=== PATIENT | male | born 1960 | race Caucasian/White ===

== ENCOUNTER 2018-09-01 13:28 | Inpatient (IN) | payer OTHER ==
[~2018-09-01] VITALS: Ht 188 cm; Wt 92.6 kg
[2018-09-01] MEDS ORDERED: SODIUM CHLORIDE 0.9% 1000ML 1,000 ML IV SCH (14:20)
[2018-09-01] MEDS ORDERED: SODIUM CHLORIDE 0.9% 1000ML 1,000 ML ONE (14:52)
--- NOTE | 2018-09-01 15:16 | NUR ---
xray at bedside
[2018-09-01 15:34] LABS: BASOPHILS # (AUTO) 0.1 (0.0-0.1); BASOPHILS % 0.5 % (0.0-1.0); EOSINOPHILS # (AUTO) 0.2 (0.0-0.4); EOSINOPHILS % 2.4 % (0.0-6.0); HEMATOCRIT 35.6 % (38.2-49.6); HEMOGLOBIN 11.5 g/dL (14.0-18.0); LYMPHOCYTES # (AUTO) 1.4 (1.0-3.2); LYMPHOCYTES % 14.6 % (18.0-39.1); MEAN CORPUSCULAR HEMOGLOBIN 28.4 pg (28-32); MEAN CORPUSCULAR HGB CONC 32.3 g/dL (31-35); MEAN CORPUSCULAR VOLUME 87.9 fL (81-99); MONOCYTES # (AUTO) 0.6 (0.2-0.8); MONOCYTES % 6.5 % (4.4-11.3); NEUTROPHILS # (AUTO) 6.8 (2.1-6.9); NEUTROPHILS % 72.6 % (38.7-80.0); PLATELET COUNT 497 x10e3/uL (140-360); RED BLOOD COUNT 4.05 x10e6/uL (4.3-5.7); RED CELL DISTRIBUTION WIDTH 12.6 % (11.7-14.4)
[2018-09-01 15:50] LABS: INR 1.2; PROTHROMBIN TIME 16.3 seconds (11.9-14.5)
[2018-09-01 15:51] LABS: PARTIAL THROMBOPLASTIN TIME 39.3 seconds (23.8-35.5)
[2018-09-01 16:00] LABS: ALBUMIN/GLOBULIN RATIO 0.7 (0.8-2.0); ANION GAP 18.2 mmol/L (8-16); CALCIUM 9.9 mg/dL (8.4-10.2); CREATININE, SERUM 2.1 mg/dL (0.72-1.25)
[2018-09-01 16:04] LABS: POTASSIUM 5.2 mmol/L (3.5-5.1)
--- NOTE | 2018-09-01 16:19 | Diagnostic Imaging Report ---
Examination: Single AP view of the chest. COMPARISON: None. INDICATION: Chest pain DISCUSSION: Lines/tubes: None. Lungs: The lungs are well inflated and clear. No pneumonia or pulmonary edema. Pleura: No pleural effusion or pneumothorax. Heart and mediastinum: The heart and the mediastinum are unremarkable. Bones and soft tissues: No acute bony abnormalities. IMPRESSION: 1. No acute cardiopulmonary abnormalities. Signed by: Dr. Scott Osorio M.D. on 09/01/2018 4:15 PM
[2018-09-01 16:23] LABS: BILIRUBIN,URINE NEGATIVE (NEGATIVE); CLARITY,URINE SL CLOUDY (CLEAR); COLOR,URINE YELLOW (YELLOW); KETONES,URINE NEGATIVE (NEGATIVE); LEUKOCYTE ESTERASE ,URINE NEGATIVE (NEGATIVE); NITRITE,URINE NEGATIVE (NEGATIVE); PROTEIN,URINE DIPSTICK NEGATIVE (NEGATIVE); URINE UROBILINOGEN 0.2 mg/dL (0.2 - 1)
[2018-09-01 16:38] LABS: AMORPHOUS SEDIMENT,URINE MODERATE (FEW); BACTERIA,URINE MANY /HPF
[2018-09-01] MEDS ORDERED: SODIUM CHLORIDE 0.9% 1000ML 1,000 ML IV ONE (18:45)
[2018-09-01] MEDS ORDERED: ONDANSETRON HCL INJ 2MG/ML 2ML 2 MG/ML VIAL IV PRN (19:15)
--- OUTSIDE RECORDS SUMMARY | 2018-09-01 19:35 | XMS REPORT ---
Author Author [facility] Address Unknown Phone Unavailable Care Team Providers Care Thimble Press Operator Name Role Phone Arnold AVILES Unavailable Unavailable Problems This patient has no known problems. Allergies, Adverse Reactions, Alerts This patient has no known allergies or adverse reactions. Medications This patient has no known medications. Results Test Description Test Time Test Comments Text Results Atomic Results Result Comments CHEST SINGLE (PORTABLE) 2018-09-01 16:15:00 [place] [address] Patient Name: MATILDE REYNA MR #: [id number] : 1960 Age/Sex: 58/M Req #: [id number] Adm Physician: Ordered by: MARI AVILES MD Report #: [id number] Location: ER Room/Bed: Procedure: [id number] DX/CHEST SINGLE (PORTABLE) Exam Date: 09/01/18 Exam Time: 1515 REPORT STATUS: Signed Examination: Single AP view of the chest. COMPARISON: None. INDICATION: Chest pain DISCUSSION: Lines/tubes: None. Lungs: The lungs are well inflated and clear. No pneumonia or pulmonary edema. Pleura: No pleural effusion or pneumothorax. Heart and mediastinum: The heart and the mediastinum are unremarkable. Bones and soft tissues: No acute bony abnormalities. IMPRESSION: 1. No acute cardiopulmonary abnormalities. Signed by: Dr. Mónica Andrade M.D. on 09/01/2018 4:15 PM Dictated By: MÓNICA ANDRADE MD [id number] Transcribed By: GEORGINA on 09/01/18 1611 COPY TO: MARI AVILES MD
[2018-09-01 20:33] VITALS: BP 119/57
--- NOTE | 2018-09-01 20:33 | NUR ---
Patient arrived to floor via w/c. Patient in bed room 207. Denies pain or discomfort at this time.
[2018-09-01 20:57] LABS: EOSINOPHILS % (MANUAL) 3 % (0-7); LYMPHOCYTES % (MANUAL) 12 % (19-48); MONOCYTES % (MANUAL) 3 % (3.4-9.0); NEUTROPHILS % (MANUAL) 82 % (40-74); PLATELET ESTIMATE SLIGHTLY INCREASED; PLATELET MORPHOLOGY COMMENT NORMAL; RBC MORPHOLOGY COMMENT NORMAL
[2018-09-01 21:11] VITALS: BP 119/57
[2018-09-01] MEDS: SODIUM CHLORIDE 0.9% 1000ML 1,000 ML IV SCH (21:30)
[2018-09-02] VITALS (8 sets, daily range): BP systolic 111–130; BP diastolic 54–73
--- NOTE | 2018-09-02 | NUR ---
Patient AAOx3. Ambulate with no difficlt.
[2018-09-02] MEDS: SODIUM CHLORIDE 0.9% 1000ML 1,000 ML IV SCH ×2 (03:13→11:13)
[2018-09-02] MEDS ORDERED: PANTOPRAZOLE SO40 MG PO (04:48)
[2018-09-02] MEDS ORDERED: BENICAR20 MG PO (04:49)
[2018-09-02] MEDS ORDERED: CARVEDILOL12.5 MG PO (04:51)
[2018-09-02] MEDS ORDERED: SERTRALINE HCL50 MG PO (04:52)
[2018-09-02 05:05] LABS: BASOPHILS % 0.6 % (0.0-1.0); EOSINOPHILS # (AUTO) 0.2 (0.0-0.4); EOSINOPHILS % 3.5 % (0.0-6.0); HEMATOCRIT 29.8 % (38.2-49.6); HEMOGLOBIN 9.6 g/dL (14.0-18.0); LYMPHOCYTES # (AUTO) 1.6 (1.0-3.2); LYMPHOCYTES % 24.2 % (18.0-39.1); MEAN CORPUSCULAR HEMOGLOBIN 27.8 pg (28-32); MEAN CORPUSCULAR HGB CONC 32.2 g/dL (31-35); MEAN CORPUSCULAR VOLUME 86.4 fL (81-99); MONOCYTES # (AUTO) 0.5 (0.2-0.8); MONOCYTES % 7.4 % (4.4-11.3); NEUTROPHILS % 61.5 % (38.7-80.0); PLATELET COUNT 342 x10e3/uL (140-360); RED BLOOD COUNT 3.45 x10e6/uL (4.3-5.7); RED CELL DISTRIBUTION WIDTH 12.7 % (11.7-14.4)
[2018-09-02] MEDS ORDERED: DICYCLOMINE HCL20 MG PO (05:13)
[2018-09-02] MEDS ORDERED: DICYCLOMINE HCL25 GM (05:13)
[2018-09-02 05:34] LABS: ANION GAP 14.4 mmol/L (8-16); CALCIUM 8.9 mg/dL (8.4-10.2); CREATININE, SERUM 1.44 mg/dL (0.72-1.25); POTASSIUM 5.4 mmol/L (3.5-5.1)
[2018-09-02 05:44] LABS: CREATINE KINASE MB 0.9 ng/mL (0-5.0)
--- NOTE | 2018-09-02 06:55 | Diagnostic Imaging Report ---
EXAMINATION: CHEST SINGLE (PORTABLE) INDICATION: WEAKNESS COMPARISON: 09/01/2018 FINDINGS: AP view TUBES and LINES: None. LUNGS: Lungs are well inflated. There is mild bibasilar atelectasis. There is no evidence of pneumonia or pulmonary edema. PLEURA: Poor delineation of the right hemidiaphragm. No left pleural effusion. No pneumothorax. HEART AND MEDIASTINUM: The cardiomediastinal silhouette is unremarkable. BONES AND SOFT TISSUES: No acute osseous lesion. Soft tissues are unremarkable. UPPER ABDOMEN: No free air under the diaphragm. IMPRESSION: Possible small right pleural effusion with adjacent atelectasis. Signed by: DR. Lizandro Rehman MD on 09/02/2018 6:51 AM
--- NOTE | 2018-09-02 07:05 | NUR ---
PT ALERT RESP EVEN AND UNLABORED, NO DISTRESS NOTED, NO C/O PAIN WHEN ASKED PT ABLE TO MAKE NEEDS KNOWN, CALL LIGHT IN REACH.
[2018-09-02 07:20] LABS: EOSINOPHILS % (MANUAL) 5 % (0-7); LYMPHOCYTES % (MANUAL) 20 % (19-48); METAMYELOCYTES % (MANUAL) 3 % (0-0); MONOCYTES % (MANUAL) 7 % (3.4-9.0); NEUTROPHILS % (MANUAL) 65 % (40-74)
[2018-09-02 07:21] LABS: PLATELET ESTIMATE ADEQUATE; PLATELET MORPHOLOGY COMMENT NORMAL; RBC MORPHOLOGY COMMENT NORMAL
[2018-09-02] MEDS ORDERED: CALCIUM GLUCONATE 10% INJ 4.65 MEQ in SODIUM CHLORIDE 0.9% 50ML 50 ML IV ONE (11:30)
[2018-09-02] MEDS ORDERED: DIATRIZOATE MEGL/DIATRIZOA SOD 30 ML BTL PO ONE (11:49)
[2018-09-02 12:08] LABS: CREATINE KINASE 45 IU/L (30-200)
[2018-09-02 12:29] LABS: FREE T4 (FREE THYROXINE) 1.01 ng/dL (0.9-1.8); THYROID STIMULATING HORMONE 1.272 uIU/mL (0.350-4.940)
[2018-09-02] MEDS: SODIUM BICARBONATE 8.4% 100 ML in DEXTROSE 5% 1,000 ML IV SCH ×2 (12:37→22:51)
--- NOTE | 2018-09-02 13:00 | NUR ---
off unit for procedure.
--- NOTE | 2018-09-02 13:03 | History and Physical ---
CHIEF COMPLAINT: Diarrhea, hypotension, and weight loss. HISTORY OF PRESENT ILLNESS: Mr. Dinero is a 58-year-old male who came to the emergency room after his primary care physician sent him over. She heard crackles on the right side of the base and also he was hypotensive to 66/40 in her office. He denies any complaints of chest pain, nausea, or vomiting. He reports that a month ago on 31 of July, he was admitted for knee replacement surgery. He went home and one week later, he started having watery diarrhea that went on. He has lost 25 pounds and his appetite is reduced as well. He denies any chest pain, sick contacts, recent travel, fever or chills at home. This morning, he had one solid stool and one loose stool as well. He denies any chest pain, nausea, vomiting, diarrhea, or abdominal pain. REVIEW OF SYSTEMS GENERAL: Denies any fever or chills. HEAD: Denies any head trauma. ENT: Denies any earaches. CVS: Denies any chest pain. RESPIRATORY: Denies any shortness of breath. GI: Denies any nausea, vomiting, hematemesis or hematochezia. Rest of the review systems are negative except as in HPI. PAST MEDICAL HISTORY: Hypertension. PAST SURGICAL HISTORY: Total knee replacement and multiple knee surgeries. FAMILY AND SOCIAL HISTORY: He does not smoke, does not drink. 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 PHYSICAL EXAMINATION VITAL SIGNS: Temperature 97.5, pulse of 66, blood pressure 122/68, respiratory rate of 18, and O2 sat 97%. HEENT: Head is atraumatic, normocephalic. NECK: Supple. CHEST: Right-sided crackles. HEART: S1 and S2 audible. ABDOMEN: Soft and nontender. EXTREMITIES: No peal edema. NEUROLOGIC: Awake and alert, following commands, respond to questions appropriately. DATA: Chest x-ray showing right-sided small infiltrate. LABS: White count of 6.52, hemoglobin 9.6, was 11.5 when he came. Chemistries; sodium 139, potassium 5.2, chloride 107, BUN 31, creatinine 2.10. When he came in, anion gap was 18.2, which is down to 14.4 and bicarb is 20 now. ASSESSMENT: Mr. Dinero is a 58-year-old male who has been having diarrhea since he had his knee replacement surgery. C. difficile is pending. The diarrhea is watery with weight loss of 25 pounds, also has a right-sided lung crackles, was hypotensive in PMD's office, presented with acute renal failure, dehydration, weight loss, feeling hot and cold. Differential could be new-onset hypothyroidism and C. difficile infection, possibility of hospital-acquired pneumonia. Chest x-ray is showing area of haziness on the right side. PLAN 1. We will do a CT chest, abdomen, and pelvis without contrast. 2. GI consult. 3. Stool for occult blood. 4. I will check TSH and free T4. 1. Nephrology consult for acute renal failure, which is improving. 2. Hyperkalemia likely due to LIZETH. Potassium 4. We will give IV calcium gluconate and repeat BMP. I will also change the fluid to D5W with 1 to 2 amps of bicarb. Discussed with patient's at bedside in detail. Job#: [id number] SAILAJA
--- NOTE | 2018-09-02 13:56 | NUR ---
return to unit, alert no distress noted. call light in reach
--- NOTE | 2018-09-02 14:56 | Diagnostic Imaging Report ---
EXAM: CT Chest abdomen and pelvis WITHOUT contrast 09/02/2018 11:01 AM INDICATION: ^abnormal cxr ^[id number] ^1300 COMPARISON: CT abdomen and pelvis 09/02/2018, chest radiograph 09/02/2018 and 09/01/2018 TECHNIQUE: Chest was scanned utilizing a multidetector helical scanner from the lung apex through the level of the hips without administration of IV contrast. Absence of intravenous contrast decreases sensitivity for detection of lymphadenopathy and vascular pathology. Coronal and sagittal reformations were obtained. Routine protocol was performed. IV CONTRAST: None Oral Contrast: Gastrografin COMPLICATIONS: None RADIATION DOSE: Total DLP: 1091mGy*cm Estimated effective dose: (DLP x 0.015 x size factor) mSv CTDIvol has been reviewed. It is below the limits set by the Radiation Protocol Committee (RPC). FINDINGS: LINES/ TUBES: None. LUNGS AND AIRWAYS: Large consolidation/mass involving approximately 50% of the right lower lobe with associated postobstructive pneumonitis manifested by groundglass opacities and septal thickening there is also an irregular pleural-based nodule measuring 3.3 cm in length x 0.9 cm in height, better seen on coronal image 90. No contralateral left pulmonary nodules. The airways are patent. Mild centrilobular emphysema. PLEURA: Small right pleural effusion. No left pleural effusion. No pneumothorax. HEART AND MEDIASTINUM: The thyroid gland is normal. Few subcentimeter right and left paratracheal lymph nodes. There is a 1 cm subcarinal lymph node on series 2, image 32. The heart is normal in size. There is no pericardial effusion. The thoracic aorta and pulmonary arteries are unremarkable. HEPATOBILIARY: No focal hepatic lesions. No biliary ductal dilation. GALLBLADDER: No radio-opaque stones or sludge. No wall thickening. SPLEEN: No splenomegaly. PANCREAS: No focal masses or ductal dilatation. ADRENALS: 3.4 cm indeterminate left adrenal gland nodule is concerning for metastatic disease. The right adrenal gland is normal. KIDNEYS/URETERS: No hydronephrosis. No cystic or solid mass lesions. 2 mm nonobstructing calcified stone in the inferior pole of the left kidney on series 2, image 84. GI TRACT: No abnormal distention, wall thickening, or evidence of bowel obstruction. Few a scattered diverticulosis of the sigmoid colon. Appendix is no visualized. PELVIC ORGANS/BLADDER: The urinary bladder appears unremarkable. The prostate is not seen. LYMPH NODES: No lymphadenopathy. VESSELS: Unremarkable. PERITONEUM / RETROPERITONEUM: No free air or fluid. BONES: Mild multilevel degenerative changes of the thoracolumbar spine. No destructive lytic or blastic lesions. Degenerative changes of the right glenohumeral joint. SOFT TISSUES: Unremarkable. IMPRESSION: Large consolidation/mass in the right lower lobe with postobstructive pneumonitis with additional pleural-based nodule/mass in the posterior right upper lobe and small right pleural effusion. Overall findings may represent large pneumonia, however, given patient's symptoms and presence of a large left adrenal nodule, there is a high concern for malignancy with superimposed postobstructive pneumonitis. Recommend pulmonary consultation for bronchoscopic biopsy. Few indeterminate subcentimeter mediastinal lymph nodes with the largest in the subcarinal region, measuring up to 1 cm in transverse diameter. Signed by: Dr. Avis Bates M.D. on 09/02/2018 2:53 PM
--- NOTE | 2018-09-02 19:14 | NUR ---
report given to oncoming nurse, for continued care.
[2018-09-03] VITALS (7 sets, daily range): BP systolic 123–140; BP diastolic 73–86
[2018-09-03 05:01] LABS: BASOPHILS % 0.7 % (0.0-1.0); EOSINOPHILS # (AUTO) 0.2 (0.0-0.4); EOSINOPHILS % 3.3 % (0.0-6.0); HEMATOCRIT 29.2 % (38.2-49.6); HEMOGLOBIN 9.8 g/dL (14.0-18.0); LYMPHOCYTES # (AUTO) 1.3 (1.0-3.2); MEAN CORPUSCULAR HEMOGLOBIN 28.7 pg (28-32); MEAN CORPUSCULAR HGB CONC 33.6 g/dL (31-35); MEAN CORPUSCULAR VOLUME 85.6 fL (81-99); MONOCYTES # (AUTO) 0.4 (0.2-0.8); MONOCYTES % 6.2 % (4.4-11.3); NEUTROPHILS % 66.5 % (38.7-80.0); PLATELET COUNT 305 x10e3/uL (140-360); RED BLOOD COUNT 3.41 x10e6/uL (4.3-5.7); RED CELL DISTRIBUTION WIDTH 12.5 % (11.7-14.4)
[2018-09-03 05:49] LABS: FERRITIN 1276.86 ng/mL (21.81-274.66)
[2018-09-03 06:15] LABS: FOLATE 3.5 ng/mL (7.0-15.4)
[2018-09-03 07:06] LABS: ANION GAP 15.2 mmol/L (8-16); BLOOD UREA NITROGEN 15 mg/dL (7-26); BUN/CREATININE RATIO 13 (6-25); CALCIUM 8.8 mg/dL (8.4-10.2); CARBON DIOXIDE 24 mmol/L (22-29); CHLORIDE 104 mmol/L (98-107); CREATININE, SERUM 1.17 mg/dL (0.72-1.25); EST GLOMERULAR FILTRATION RATE > 60 ML/MIN (60-); GLUCOSE 103 mg/dL (74-118); POTASSIUM 4.2 mmol/L (3.5-5.1); SODIUM 139 mmol/L (136-145)
--- NOTE | 2018-09-03 07:12 | NUR ---
PT ALERT RESP EVEN AND UNLABORED AT THIS TIME NO DISTRESS NOTED, NO C/O PAIN WHEN ASKED, PT ABLE TO MAKE NEEDS KNOWN, CALL LIGHT IN REACH.
--- NOTE | 2018-09-03 08:35 | NUR ---
STOOL SENT TO LAB.
[2018-09-03] MEDS: SODIUM BICARBONATE 8.4% 100 ML in DEXTROSE 5% 1,000 ML IV SCH (09:30)
[2018-09-03] MEDS ORDERED: AZITHROMYCIN 250 MG TAB PO ONE (12:00)
[2018-09-03] MEDS ORDERED: DEXTROSE 5%/0.9% SOD CHL 1,000 ML IV ONE (14:15)
--- NOTE | 2018-09-03 16:40 | NUR ---
PT AMB IN [place] NO DISTRESS NOTED.
--- NOTE | 2018-09-03 19:49 | NUR ---
REPORT GIVEN TO ONCOMING NURSE, FOR CONTINUED CARE
[2018-09-04] VITALS (7 sets, daily range): BP systolic 115–134; BP diastolic 71–81
[2018-09-04 07:37] LABS: BASOPHILS # (AUTO) 0.1 (0.0-0.1); BASOPHILS % 0.8 % (0.0-1.0); EOSINOPHILS # (AUTO) 0.2 (0.0-0.4); HEMATOCRIT 30.6 % (38.2-49.6); HEMOGLOBIN 10.2 g/dL (14.0-18.0); LYMPHOCYTES # (AUTO) 1.5 (1.0-3.2); LYMPHOCYTES % 22.8 % (18.0-39.1); MEAN CORPUSCULAR HEMOGLOBIN 28.5 pg (28-32); MEAN CORPUSCULAR HGB CONC 33.3 g/dL (31-35); MEAN CORPUSCULAR VOLUME 85.5 fL (81-99); MONOCYTES # (AUTO) 0.5 (0.2-0.8); MONOCYTES % 7.2 % (4.4-11.3); NEUTROPHILS # (AUTO) 4.2 (2.1-6.9); NEUTROPHILS % 65.3 % (38.7-80.0); PLATELET COUNT 297 x10e3/uL (140-360); RED BLOOD COUNT 3.58 x10e6/uL (4.3-5.7); RED CELL DISTRIBUTION WIDTH 12.5 % (11.7-14.4)
[2018-09-04 07:59] LABS: ANION GAP 13.9 mmol/L (8-16); BLOOD UREA NITROGEN 11 mg/dL (7-26); BUN/CREATININE RATIO 9 (6-25); CARBON DIOXIDE 29 mmol/L (22-29); CHLORIDE 101 mmol/L (98-107); CREATININE, SERUM 1.22 mg/dL (0.72-1.25); EST GLOMERULAR FILTRATION RATE > 60 ML/MIN (60-); GLUCOSE 96 mg/dL (74-118); POTASSIUM 4.9 mmol/L (3.5-5.1); SODIUM 139 mmol/L (136-145)
[2018-09-04 08:02] LABS: INR 1.16; PROTHROMBIN TIME 15.8 seconds (11.9-14.5)
[2018-09-04] MEDS: DICYCLOMINE HCL 10 MG CAP PO SCH ×3 (09:00→21:49)
[2018-09-04] MEDS: IRON-VITAMIN-MINERAL CAPSULE PO SCH ×2 (09:00→17:34)
[2018-09-04] MEDS: AZITHROMYCIN 250 MG TAB PO SCH (10:35)
--- NOTE | 2018-09-04 12:16 | NUR ---
CASE MANAGEMENT ASSESSMENT Head Banquet Waiter/Waitress to bedside to discuss plan of care with patient/family. CM/SW role and care transitions discussed. Anticipated discharge plan discussed along with duration of care. CM/SW discussed patients right to make decisions in care. CM/SW work hours given. Patient lives: with Desiree Admit/Transfer: thru ED Hospital/ER visits since last admit: was hospitalized on July 31, 2018 at [facility] for knee replacement; returned to [facility] ED on Aug 08, but left AMA after 9.5 -10 hrs without being seen by a doctor. POA/Emergency contact: Desiree Dinero [phone] Current/Previous Home Health: none PCP/Follow-up Care: goes to [facility]; states he sees whichever doctor is available there. Advised pt to follow up with a doctor within 7 days of discharge. Current/Previous DME: none Medications (referring to index hospitalization or the first time you were in the hospital) a. Were changes made in your medications when you were in the hospital on July 2018? no b. Did you understand the changes? n/a c. Were you able to obtain your new medications right away? n/a d. Were you able to take your medications like the doctor wanted you to? n/a e. Did the hospital give you an accurate, easy to understand list of medications when you left? n/a Scale of 1-10 how comfortable does patient feel with disease management in outpatient settin Other Services: none Employment Status: employed for the [employer] Areas of Concerns: diarrhea, dehydration, 25 lb weight loss in 3 weeks Referral Needs: dietary Education Needs: medical management IMM/MULTANI given and signed (if applicable): n/a Goal for discharge: home independently CM/SW left business card at the bedside with contact information. Name and number was also written on the patients whiteboard. Patient verbalized understanding of discussion. CM will follow-up with ongoing discharge and transition of care needs.
--- NOTE | 2018-09-04 12:25 | NUR ---
ASSESSMENT: No spiritual concerns expressed Pt's and 2 granddaughters at bedside. 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 Intervention: Provided hospitality and information on how to reach licensed clinician, if needed. Outcome: Pt & expressed appreciation for visit. DECLAN BROOKE Delicatessen Department Manager Spiritual Care Department O: [phone] Pager: [phone] ([phone] number calling from)
[2018-09-04] MEDS ORDERED: OXYMETAZOLINE HCL 0.05% NAS 1 SPRAY BTL ONE (12:37)
[2018-09-04] MEDS ORDERED: LIDOCAINE HCL 4% 50 ML BTL ONE (12:37)
[2018-09-04] MEDS ORDERED: ACETYLCYSTEINE 200 MG/ML 4ML VIAL ONE (12:37)
[2018-09-04] MEDS ORDERED: LIDOCAINE JELLY 2% 10ML URO-JET ONE (12:37)
[2018-09-04] MEDS ORDERED: EPINEPHRINE HCL 1:1000 1ML 1 MG/ML AMP ONE (12:37)
--- NOTE | 2018-09-04 14:00 | Diagnostic Imaging Report ---
A single frontal view of the chest. HISTORY: POST BRONCH COMPARISON: Chest radiograph September 02, 2018. CT of the chest September 02 2018. DISCUSSION: Portable technique, limits sensitivity of the exam. Soft tissue attenuation partially limits sensitivity of the exam. Overlying monitoring leads. Tubes/Lines: None Lungs and pleura: Low lung volumes result in bibasilar vascular crowding, accentuation of the pulmonary interstitial markings, central pulmonary vasculature, and the cardiac silhouette. Allowing for these limitations, the findings are as follows: The right basilar opacity is better characterized on the recent CT of the chest. No definite pleural effusion or pneumothorax is identified. Heart and mediastinum: The cardiomediastinal silhouette appears unremarkable. Bones and soft tissues: Appear unremarkable, given this limited exam. IMPRESSION: No radiographic evidence of a pneumothorax, status post bronchoscopy. Signed by: Dr. Carmelo Sandoval D.O., M.M.M. on 09/04/2018 1:57 PM
[2018-09-04 14:43] LABS: BODY FLUID APPEARANCE SL.CLOUDY; BODY FLUID COLOR RED; BODY FLUID TYPE PLEURAL
--- NOTE | 2018-09-04 15:04 | NUR ---
Pt back on unit in stable condition with even and unlabored respirations on room air. Dr. iGron at bedside.
[2018-09-04 15:29] LABS: RBC,BODY FLUID 1219 cells/uL; WBC,BODY FLUID 9 cells/uL
[2018-09-04 15:37] LABS: LYMPHOCYTES,BODY FLUID 29 %; MONO/MACROPHG,BODY FLUID 58 %; NEUTROPHILS,BODY FLUID 13 %
--- NOTE | 2018-09-04 16:05 | Operative Report ---
DATE OF PROCEDURE: September 04, 2018 PREPROCEDURE DIAGNOSIS: Abnormal computed tomography chest. POSTPROCEDURE DIAGNOSIS: Normal endobronchial airways. PROCEDURE PERFORMED: Bronchoscopy with bronchioalveolar lavage and biopsy. ANESTHESIA: MAC. PROCEDURE IN DETAIL: Bronchoscope was advanced through the LMA. Vocal cords were identified, which were normally moving. Trachea was entered. Alpa was identified, which was within normal limits. Both lungs were examined until segmental level. Right upper lobe, middle lobe, lower lobe were examined. No endobronchial lesion was seen. Left upper lobe lingula and lower lobe were examined. No endobronchial lesion was seen. Transbronchial lung biopsy was done from right lower lobe, and BAL was done from right lower lobe as well. Patient tolerated the procedure well. COMPLICATIONS: None. BLOOD LOSS: 1 to 2 mL. Postprocedure chest x-ray is not showing any evidence of pneumothorax. Job#: [id number] EV
[2018-09-04] MEDS ORDERED: FENTANYL CITRATE/PF 100MCG/2 ML INJ ONE (17:53)
[2018-09-04] MEDS ORDERED: LIDOCAINE HCL 2% LOCAL INJ 5 ML SDV VIAL INJ ONE (18:05)
[2018-09-04] MEDS ORDERED: ONDANSETRON HCL INJ 2MG/ML 2ML 2 MG/ML VIAL ONE (18:05)
[2018-09-04] MEDS ORDERED: SEVOFLURANE INHAL SOLN 250 ML PEN BTL ONE (18:05)
[2018-09-04] MEDS ORDERED: PROPOFOL IV EMULSION 10 MG/ML 20 ML VIAL ONE (18:05)
[2018-09-04] MEDS ORDERED: DEXAMETHASONE SOD PHOS INJ 4 MG/ML VIAL ONE (18:05)
[2018-09-05] VITALS: BP 109/68
[2018-09-05 04:00] VITALS: BP 104/65
[2018-09-05 07:51] VITALS: BP 119/70
[2018-09-05 09:11] VITALS: BP 119/70
[2018-09-05] MEDS: IRON-VITAMIN-MINERAL CAPSULE PO SCH (09:11)
[2018-09-05] MEDS: DICYCLOMINE HCL 10 MG CAP PO SCH (09:11)
[2018-09-05] MEDS: AZITHROMYCIN 250 MG TAB PO SCH (09:11)
[2018-09-05] MEDS ORDERED: AZITHROMYCIN250 MG PO ×2 (10:30→11:49)
[2018-09-05] MEDS ORDERED: FOLIC ACID 1 MG TAB PO NR (11:00)
[2018-09-05] MEDS ORDERED: CYANOCOBALAMIN 1,000 MCG TAB PO NR (11:00)
[2018-09-05 11:49] VITALS: BP 122/61
--- NOTE | 2018-09-05 12:15 | NUR ---
Discharge instructions and home Rx's given to the patient. Pt verbalized understanding. IV removed with tip intact, dressing applied. pt tolerated well. All personal belongings packed. Pt escorted to personal vehicle in stable condition via wheelchair with all belongings.
--- NOTE | 2018-09-05 12:41 | Discharge Summary ---
Patient of Dr. Mack Dr. , Dr. Vic Duran. 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 He is a nonsmoker and no alcohol use. 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 Chest x-ray revealed a right lower lobe pneumonia. CT scan reveals nodularity and possible postobstructive pneumonia. The patient underwent bronchoscopy to rule out bronchial obstruction, but none was seen. Biopsies and washings and lavage were performed, results are pending. There is also a suggestion of adrenal nodule and a pleural-based nodule as well as large mass-like infiltrate. The patient improved with azithromycin, diarrhea stopped. He was found to have anemia of chronic disease. Hemoglobin of 10.2. Folic acid was low at 3.5, B12 529. Recommend folic acid. We will check methylmalonic acid and homocysteine. His folic acid was 3.5, vitamin B12 529. Thank you for kind referral. MD BAUTISTA Prince/MODL /[id number]
== END 2018-09-05 12:07 | disposition home or self-care (01) | DRG 194 ==
LOC: ER 13:28 → ERHOLD 19:30 → MED/SURG2 20:33 → OBSVTOIN 09-04 14:57
PROVIDERS: ADMIT Internal Medicine; ATTEND Internal Medicine
PROC: 0BDF8ZX Extraction of Right Lower Lung Lobe, Via Natural or Artificial Opening Endoscopic, Diagnostic (ICD-10-PCS; 2018-09-04)
PROC: 0B9F8ZX Drainage of Right Lower Lung Lobe, Via Natural or Artificial Opening Endoscopic, Diagnostic (ICD-10-PCS; principal; 2018-09-04 13:05)
DX: J18.9 Pneumonia, unspecified organism (principal); N17.9 Acute kidney failure, unspecified; E87.2 Acidosis; D63.8 Anemia in other chronic diseases classified elsewhere; E86.0 Dehydration; E87.5 Hyperkalemia; E27.9 Disorder of adrenal gland, unspecified; K52.9 Noninfective gastroenteritis and colitis, unspecified
CPT/HCPCS: 36415; 71045; 71250; 74176; 76000; 80048; 80053; 81001; 82270; 82533; 82550; 82553; 82607; 82728; 82746; 83090; 83540; 83630; 83921; 84295; 84439; 84443; 84466; 84484; 85025; 85045; 85610; 85730; 87045; 87102; 87109; 87177; 87205; 87206; 87335; 87493; 88305; 89051; 93005; 96361; 96366; 99284; G0378; J0171; J0610; J1100; J2001; J2405; J7030; J7070

== ENCOUNTER → 2018-10-02 | Day surgery (SDC) | payer OTHER ==
[~2018-10-02] MED LIST: AZITHROMYCIN250 MG PO; BENICAR20 MG PO; CARVEDILOL12.5 MG PO; DICYCLOMINE HCL20 MG PO; DICYCLOMINE HCL25 GM; FENTANYL CITRATE/PF 100MCG/2 ML INJ ONE; HYOSCYAMINE SULFATE 0.5 MG/ML INJ ONE; MIDAZOLAM HCL 2 MG/2 ML VIAL ONE; PANTOPRAZOLE SO40 MG PO; PROPOFOL IV EMULSION 10 MG/ML 50 ML VIAL ONE; SERTRALINE HCL50 MG PO; ZYRTEC10 MG PO
--- OUTSIDE RECORDS SUMMARY | 2018-10-02 09:42 | XMS REPORT | CCD ---
Author Author Auto Generated Organization [facility] Address Unknown Phone Unavailable Care Team Providers Care Hardware Manager Name Role Phone Iris Dempsey RP Allergies, Adverse Reactions, Alerts Substance Reaction Status NKDA Active Medications Medication Instructions Start Date End Date Status Fish Oil Substitution Allowed 09/02/2011 Ordered Benicar 40 mg oral 40 mg, 1 tab, PO, Daily, 30 tab, 09/02/2011 Ordered tablet Substitution Allowed, TAB Lactated Ringers IV 1,000 mL, Rate: 40 ml/hr, Infuse 09/07/2011 09/08/2011 Discontinued 1,000 mL 1,000 mL over: 25 hr, Route: IV, Total Volume: 1,000, Start date: 09/07/11 9:50:00, Duration: 1 day, Stop date: 09/08/11 9:49:00 Vital Signs Most recent to oldest [Reference Range]: 1 2 3 Height 187.96 cm (09/02/2011 10:07:00) Temperature Oral [96.4-99.1 DegF] 98.2 DegF (09/02/2011 10:44:00) Systolic Blood Pressure [90-140 mmHg] 121 mmHg (09/07/2011 10:17:00) 95 mmHg (09/07/2011 10:05:00) 84 mmHg *LOW* (09/07/2011 09:50:00) Diastolic Blood Pressure [60-90 mmHg] 64 mmHg (09/07/2011 10:17:00) 54 mmHg *LOW* (09/07/2011 10:05:00) 44 mmHg *LOW* (09/07/2011 09:50:00) Respiratory Rate [14-20 BRMIN] 18 BRMIN (09/07/2011 10:17:00) 16 BRMIN (09/07/2011 10:05:00) 16 BRMIN (09/07/2011 09:50:00) Peripheral Pulse Rate [60-100 bpm] 73 bpm (09/02/2011 10:44:00) Weight 113.636 kg (09/02/2011 10:07:00) Results CHEMISTRY Most recent to oldest [Reference Range]: 1 Sodium Lvl [135-145 mEq/L] 140 mEq/L (09/02/2011 10:46:00) Potassium Lvl [3.5-5.1 mEq/L] 4.3 mEq/L (09/02/2011 10:46:00) Chloride Lvl [95-109 mEq/L] 104 mEq/L (09/02/2011 10:46:00) CO2 [24-32 mEq/L] 27 mEq/L (09/02/2011 10:46:00) AGAP [10.0-20.0 mEq/L] 13.3 mEq/L (09/02/2011 10:46:00) Creatinine Lvl [0.5-1.4 mg/dL] 1.2 mg/dL (09/02/2011 10:46:00) BUN [7-22 mg/dL] 12 mg/dL (09/02/2011 10:46:00) Glucose Lvl 70 mg/dL 1 *NA* (09/02/2011 10:46:00) Calcium Lvl [8.5-10.5 mg/dL] 8.7 mg/dL (09/02/2011 10:46:00) 1Interpretive Data: Reference Ranges : 0 - 7 days : 41 - 90 mg/dL7 days - 150 yrs : 70 - 99 mg/dL (fasting), based on the clinical recommendations of the [place] [employer].
--- OUTSIDE RECORDS SUMMARY | 2018-10-02 09:42 | XMS REPORT | Summary of Care ---
Author Author [facility] Address Unknown Phone Unavailable Encounter HQ Paulntr_argelia(FIN) [id number] Date(s): 08/02/18 - 08/31/18 [facility] Discharge Disposition: Home or Self Care Attending Physician: Abdirizak Duckworth MD Vital Signs No data available for this section Problem List Condition Effective Dates Status Health Status Informant Bleeding internal 08/03/11 Active hemorrhoids1 GERD Active (gastroesophageal reflux disease)(Confirmed) HTN Active (hypertension)(Confi rmed) 1Data migrated from [employer] on 12/14/14. Allergies, Adverse Reactions, Alerts Substance Reaction Severity Status hydrochlorothiazide-triam Active terene Medications No data available for this section Results No data available for this section Immunizations No data available for this section Procedures Procedure Date Related Diagnosis Body Site Status Prostate excision Completed Social History Social History Type Response Alcohol Never Smoking Status Never smoker; Ready to change: No; Concerns about tobacco use in household: No; Exposure to Tobacco Smoke None; Cigarette Smoking Last 365 Days No; Reg Smoking Cessation Counseling Yes entered on: 07/31/18 Assessment and Plan No data available for this section
--- OUTSIDE RECORDS SUMMARY | 2018-10-02 09:42 | XMS REPORT | Summary of Care ---
Author Author [facility] Organization [facility] Address Unknown Phone Unavailable Encounter GINNA Alvarez(ROSSI) [id number] Date(s): 08/08/18 - 08/08/[address] [facility] [address] [place] [address]- Discharge Disposition: [facility] Left B4 Treatment Cmplt-MSE Cmplt Attending Physician: Alpesh Tolbert DO Vital Signs Most recent to 1 2 oldest [Reference Range]: Height 187.96 cm (08/08/18 11:38 AM) Temperature Oral 98.0 DegF [96.4-99.1 DegF] (08/08/18 11:38 AM) Blood Pressure 190/98 mmHg 189/98 mmHg [90-140/60-90 mmHg] *HI* *HI* (08/08/18 7:49 PM) (08/08/18 11:38 AM) Respiratory Rate 18 BRMIN 18 BRMIN [14-20 BRMIN] (08/08/18 7:49 PM) (08/08/18 11:38 AM) Peripheral Pulse 69 bpm 64 bpm Rate [60-100 bpm] (08/08/18 7:49 PM) (08/08/18 11:38 AM) Weight 113.636 kg (08/08/18 11:38 AM) Body Mass Index 32.17 m2 (08/08/18 11:38 AM) Problem List Condition Effective Dates Status Health Status Informant Bleeding internal 08/03/11 Active hemorrhoids1 GERD Active (gastroesophageal reflux disease)(Confirmed) HTN Active (hypertension)(Confi rmed) 1Data migrated from SDI on 12/14/14. Allergies, Adverse Reactions, Alerts Substance Reaction Severity Status hydrochlorothiazide-triam Active terene Medications Saline Flush 0.9% 10 mL, Route: IVP, Drug Form: INJ, Dosing Weight 113.636, kg, PRN, PRN Line Flus h, Start date: 08/08/18 11:46:00 SAW SHARPENER, Duration: 30 day, Stop date: 09/07/18 11:4 5:00 SAW SHARPENER Notes: Same as: BD Posiflush Sterile Start Date: 08/08/18 Stop Date: 08/08/18 Status: Discontinued Results ELECTROLYTES Most recent to 1 oldest [Reference Range]: Sodium Lvl [135-145 139 mEq/L mEq/L] (08/08/18 11:59 AM) Potassium Lvl 3.9 mEq/L [3.5-5.1 mEq/L] (08/08/18 11:59 AM) Chloride Lvl [95-109 101 mEq/L mEq/L] (08/08/18 11:59 AM) CO2 [24-32 mEq/L] 28 mEq/L (08/08/18 11:59 AM) AGAP [10.0-20.0 13.9 mEq/L mEq/L] (08/08/18 11:59 AM) CHEM PANEL Most recent to 1 oldest [Reference Range]: Creatinine Lvl 1.30 mg/dL [0.50-1.40 mg/dL] (08/08/18 11:59 AM) eGFR 59 mL/min/1.73m2 1 *NA* (08/08/18 11:59 AM) BUN [7-22 mg/dL] 17 mg/dL (08/08/18 11:59 AM) B/C Ratio [6-25] 13 (08/08/18 11:59 AM) Glucose Lvl [70-99 142 mg/dL mg/dL] *HI* (08/08/18 11:59 AM) Total Protein 8.3 g/dL [6.4-8.4 g/dL] (08/08/18 11:59 AM) Albumin Lvl [3.5-5.0 3.7 g/dL g/dL] (08/08/18 11:59 AM) Globulin [2.7-4.2 4.6 g/dL g/dL] *HI* (08/08/18 11:59 AM) A/G Ratio [0.7-1.6] 0.8 (08/08/18 11:59 AM) Calcium Lvl 9.5 mg/dL [8.5-10.5 mg/dL] (08/08/18 11:59 AM) ALT [0-65 unit/L] 29 unit/L (08/08/18 11:59 AM) AST [0-37 unit/L] 20 unit/L (08/08/18 11:59 AM) Alk Phos [39-136 64 unit/L unit/L] (08/08/18 11:59 AM) Bili Total [0.2-1.3 2.5 mg/dL mg/dL] *HI* (08/08/18 11:59 AM) 1Result Comment: The eGFR is calculated using the CKD-EPI formula. In most young, healthy individuals the eGFR will be >90 mL/min/1.73m2. The eGFR declines with age. An eGFR of 60-89 may be normal in some populations, particularly the elderly, for whom the CKD-EPI formula has not been extensively validated. Use of the eGFR is not recommended in the following populations: Individuals with unstable creatinine concentrations, including patients and those with serious co-morbid conditions. Patients with extremes in muscle mass or diet. The data above are obtained from the National Kid[employer] Education Program ( NK[employer]) which additionally recommends that when the eGFR is used in patients with extremes of body mass index for purposes of drug dosing, the eGFR should be mul tiplied by the estimated BMI. CARDIAC ENZYMES Most recent to 1 oldest [Reference Range]: Total CK [12-191 91 unit/L unit/L] (08/08/18 11:59 AM) Troponin-I <0.02 ng/mL [0.00-0.40 ng/mL] (08/08/18 11:59 AM) BNP [<=100 pg/mL] 44 pg/mL (08/08/18 11:59 AM) HEMATOLOGY Most recent to 1 oldest [Reference Range]: WBC [3.7-10.4 K/CMM] 16.0 K/CMM *HI* (08/08/18 11:59 AM) RBC [4.70-6.10 5.04 M/CMM M/CMM] (08/08/18 11:59 AM) Hgb [14.0-18.0 g/dL] 14.7 g/dL (08/08/18 11:59 AM) Hct [42.0-54.0 %] 44.0 % (08/08/18 11:59 AM) MCV [80.0-94.0 fL] 87.4 fL (08/08/18 11:59 AM) MCH [27.0-31.0 pg] 29.2 pg (08/08/18 11:59 AM) MCHC [32.0-36.0 33.5 g/dL g/dL] (08/08/18 11:59 AM) RDW [11.5-14.5 %] 13.1 % (08/08/18 11:59 AM) MPV [7.4-10.4 fL] 7.0 fL *LOW* (08/08/18 11:59 AM) Platelet [133-450 465 K/CMM K/CMM] *HI* (08/08/18 11:59 AM) Segs [45.0-75.0 %] 86.0 % *HI* (08/08/18 11:59 AM) Lymphocytes 7.3 % [20.0-40.0 %] *LOW* (08/08/18 11:59 AM) Monocytes [2.0-12.0 5.1 % %] (08/08/18 11:59 AM) Eosinophils [0.0-4.0 0.9 % %] (08/08/18 11:59 AM) Basophils [0.0-1.0 0.7 % %] (08/08/18 11:59 AM) Neutrophils # 13.8 K/CMM [1.5-8.1 K/CMM] *HI* (08/08/18 11:59 AM) Lymphocytes # 1.2 K/CMM [1.0-5.5 K/CMM] (08/08/18 11:59 AM) Monocytes # [0.0-0.8 0.8 K/CMM K/CMM] (08/08/18 11:59 AM) Eosinophils # 0.1 K/CMM [0.0-0.5 K/CMM] (08/08/18 11:59 AM) Basophils # [0.0-0.2 0.1 K/CMM K/CMM] (08/08/18 11:59 AM) PT [12.0-14.7 14.7 seconds seconds] (08/08/18 11:59 AM) INR [0.85-1.17] 1.17 (08/08/18 11:59 AM) PTT [22.9-35.8 36.0 seconds seconds] *HI* (08/08/18 11:59 AM) Immunizations No data available for this section [...]
--- OUTSIDE RECORDS SUMMARY | 2018-10-02 09:42 | XMS REPORT | Continuity of Care Document ---
Author Author [facility] Interface Address Unknown Phone Unavailable Problems Problem Status Onset Date Classification Date Reported Comments Source ABDOMINAL PAIN Active 08/08/2018 [facility] RT TKA Active 07/18/2018 [facility] UNK Active 05/10/2018 [facility] PAIN R KNEE Active 07/18/2017 [facility] COLON SCREENING CA Active 08/19/2011 [facility] COLON SCREEN Active 08/19/2011 [facility] Bleeding internal hemorrhoids<sup>1</sup> Active 08/03/2011 Problem 09/02/2018 Data migrated from [employer] on 12/14/14. [facility] 729.5 - PAIN IN LIMB Active 07/21/2011 AILEEN Toscano GERD (<span ID="[id number]">Confirmed</span>) Active Problem 09/02/2018 [facility] HTN (<span ID="[id number]">Confirmed</span>) Active Problem 09/02/2018 [facility] UNILATERAL PRIMARY OSTEOARTHRITIS, RIGHT Active [facility] Medications Medication Details Route Status Patient Instructions Ordering Provider Order Date Source Carvedilol 12.5 Mg Tablet, 12.5 Mg Oral Twice A Day Active 09/05/2018 [facility] Dicyclomine Hcl 20 Mg Tablet, 20 Mg Oral Four Times Daily Active 09/05/2018 [facility] Dicyclomine Hcl 25 Gm Powder, Active 09/05/2018 [facility] Olmesartan Medoxomil (Benicar) 20 Mg Tablet, 20 Mg Oral Daily Active 09/05/2018 [facility] Pantoprazole Sodium (Protonix) 40 Mg Tablet.dr, 40 Mg Oral Active 09/05/2018 [facility] Sertraline Hcl 50 Mg Tablet, 50 Mg Oral Daily Active 09/05/2018 [facility] Saline Flush 0.9% 10 mL, Route: IVP, Drug Form: INJ, Dosing Weight 113.636, kg, PRN, PRN Line Flush, Start date: 08/08/18 11:46:00 NECKTIE TURNER, Duration: 30 day, Stop date: 09/07/18 11:45:00 CSTNotes: Same as: BD Posiflush Sterile Inactive 08/08/2018 [facility] Lactated Ringers IV 1,000 mL 1,000 mL 1,000 mL, Rate: 40 ml/hr, Infuse over: 25 hr, Route: IV, Total Volume: 1,000, Start date: 09/07/11 9:50:00, Duration: 1 day, Stop date: 09/08/11 9:49:00 IV No Longer Active Voloyiannis 09/07/2011 [facility] Fish Oil Substitution Allowed Active 09/02/2011 [facility] Benicar 40 mg oral tablet 40 mg, 1 tab, PO, Daily, 30 tab, Substitution Allowed, TAB PO Active 09/02/2011 [facility] Azithromycin (Z-Jonny) 250 Mg Tablet Use As Directed Active Z- Pack [facility] Allergies, Adverse Reactions, Alerts Substance Category Reaction Severity Reaction type Status Date Reported Comments Source Hydrochlorothiazide Mild Allergy to Substance Active 09/02/2018 [facility] hydrochlorothiazide-triamterene Assertion Drug allergy Active [facility] [place] Immunizations Immunization Date Given Site Status Last Updated Comments Source Results Order Name Results Value Reference Range Date Interpretation Comments Source Specimen source identification of body fluid PLEURAL 09/04/2018 [facility] Evaluation of color of body fluid RED 09/04/2018 [facility] Determination of appearance of body fluid SL.CLOUDY 09/04/2018 [facility] Manual body fluid leukocytes count (number/volume) 9 09/04/2018 [facility] Manual body fluid erythrocytes count (number/volume) 1219 09/04/2018 [facility] Manual body fluid neutrophils/100 leukocytes 13 09/04/2018 [facility] Body fluid lymphocyte count 29 09/04/2018 [facility] Body fluid monocyte count 58 09/04/2018 [facility] Total cell count 100 09/04/2018 [facility] Blood leukocytes automated count (number/volume) 6.36 4.8 - 10.8 09/04/2018 [facility] Blood erythrocytes automated count (number/volume) 3.58 4.3 - 5.7 09/04/2018 [facility] Blood hemoglobin measurement (moles/volume) 10.2 14.0 - 18.0 09/04/2018 [facility] Automated blood hematocrit (volume fraction) 30.6 38.2 - 49.6 09/04/2018 [facility] Automated erythrocyte mean corpuscular volume 85.5 81 - 99 09/04/2018 [facility] Automated erythrocyte mean corpuscular hemoglobin (mass per erythrocyte) 28.5 28 - 32 09/04/2018 [facility] Automated erythrocyte mean corpuscular hemoglobin concentration measurement (mass/volume) 33.3 31 - 35 09/04/2018 [facility] RDW BldCo-Rto 12.5 11.7 - 14.4 09/04/2018 [facility] Automated blood platelet count (count/volume) 297 140 - 360 09/04/2018 [facility] Automated blood segmented neutrophil count as percentage of total leukocytes 65.3 38.7 - 80.0 09/04/2018 [facility] Automated blood lymphocyte count as percentage ot total leukocytes 22.8 18.0 - 39.1 09/04/2018 [facility] Automated blood monocyte count as percentage of total leukocytes 7.2 4.4 - 11.3 09/04/2018 [facility] Automated blood eosinophil count as percentage of total leukocytes 3.0 0.0 - 6.0 09/04/2018 [facility] Automated blood basophil count as percentage of total leukocytes 0.8 0.0 - 1.0 09/04/2018 [facility] IM GRANULOCYTES % 0.9 0.0 - 1.0 09/04/2018 [facility] Automated blood neutrophil count 4.2 2.1 - 6.9 09/04/2018 [facility] Blood lymphocytes count (number/volume) 1.5 1.0 - 3.2 09/04/2018 [facility] Blood monocytes automated count (number/volume) 0.5 0.2 - 0.8 09/04/2018 [facility] Automated blood eosinophil count 0.2 0.0 - 0.4 09/04/2018 [facility] Automated blood basophil count (count/volume) 0.1 0.0 - 0.1 09/04/2018 [facility] Absolute Immature Granulocyte (auto 0.06 0 - 0.1 09/04/2018 [facility] Prothrombin time (PT) in platelet poor plasma by coagulation assay 15.8 11.9 - 14.5 09/04/2018 [facility] INR in Platelet poor plasma by Coagulation assay 1.16 09/04/2018 [facility] Serum or plasma sodium measurement (moles/volume) 139 136 - 145 09/04/2018 [facility] Serum or plasma potassium measurement (moles/volume) 4.9 3.5 - 5.1 09/04/2018 [facility] Serum or plasma chloride measurement (moles/volume) 101 98 - 107 09/04/2018 [facility] Serum or plasma carbon dioxide, total measurement (moles/volume) 29 22 - 29 09/04/2018 [facility] Serum or plasma anion gap 13.9 8 - 16 09/04/2018 [facility] Serum or plasma urea nitrogen measurement (mass/volume) 11 7 - 26 09/04/2018 [facility] Serum or plasma creatinine measurement (mass/volume) 1.22 0.72 - 1.25 09/04/2018 [facility] Serum or plasma urea nitrogen/creatinine mass ratio 9 6 - 25 09/04/2018 [facility] Estimated glomerular filtration rate (GFR) determination > 60 60 09/04/2018 [facility] Glucose measurement 96 74 - 118 09/04/2018 [facility] Serum or plasma calcium measurement (mass/volume) 9.0 8.4 - 10.2 09/04/2018 [facility] Automated reticulocyte count as percentage of total erythrocytes 1.5 0.8 - 2.2 09/03/2018 [facility] Serum or plasma iron measurement (mass/volume) 45 65 - 175 09/03/2018 [facility] Serum or plasma iron binding capacity measurement (mass/volume) 220 261 - 478 09/03/2018 [facility] Serum or plasma iron saturation measurement (mass fraction) 20 15 - 50 09/03/2018 [facility] Serum or plasma transferrin measurement (mass/volume) 157 174 - 364 09/03/2018 [facility] Serum or plasma ferritin measurement (mass/volume) 1276.86 21.81 - 274.66 09/03/2018 [facility] Blood cobalamin (vitamin B12) measurement (mass/volume) 529 213 - 816 09/03/2018 [facility] Serum or plasma folate measurement (mass/volume) 3.5 7.0 - 15.4 09/03/2018 [facility] Stool lactoferrin detection NEGATIVE NEGATIVE 09/03/2018 [facility] Stool gastrointestinal hemoglobin detection NEGATIVE NEGATIVE 09/03/2018 [facility] Serum or plasma creatine kinase measurement (enzymatic activity/volume) 45 30 - 200 09/02/2018 [facility] Serum or plasma creatine kinase MB measurement (mass/volume) 0.90 0 - 5.0 09/02/2018 [facility] Troponin I measurement by highly sensitive enzyme immunoassay < 0.001 0 - 0.300 09/02/2018 [facility] Serum or plasma thyroxine (T4) free measurement (mass/volume) 1.01 0.9 - 1.8 09/02/2018 [facility] Serum or plasma thyrotropin measurement by detection limit <=0.005 miu/l (units/volume) 1.272 0.350 - 4.940 09/02/2018 [facility] Serum or plasma cortisol measurement (mass/volume) 11.7 . 09/02/2018 [facility] Differential Total Cells Counted 100 09/02/2018 [facility] Manual blood neutrophils/100 leukocytes 65 40 - 74 09/02/2018 [facility] Manual blood lymphocytes/100 leukocytes 20 19 - 48 09/02/2018 [facility] Manual blood monocytes/100 leukocytes 7 3.4 - 9.0 09/02/2018 [facility] Manual blood eosinophil count as percentage of total leukocytes 5 0 - 7 09/02/2018 [facility] Manual blood metamyelocytes/100 leukocytes 3 0 - 0 09/02/2018 [facility] Blood platelets count by estimate (number/volume) ADEQUATE 09/02/2018 [facility] Platelet morphology NORMAL 09/02/2018 [facility] RBC morphology NORMAL 09/02/2018 [facility] Clostridium difficile A and B toxin assay NEGATIVE NEGATIVE 09/01/2018 [facility] Urine color determination YELLOW YELLOW 09/01/2018 [facility] Urine clarity SL CLOUDY CLEAR 09/01/2018 [facility] Specific gravity of Urine by Test strip 1.025 1.010 - 1.025 09/01/2018 [facility] Urine pH measurement by automated test strip 5 5 - 7 09/01/2018 [facility] Urine leukocyte esterase detection by dipstick NEGATIVE NEGATIVE 09/01/2018 [facility] Urine nitrite detection NEGATIVE NEGATIVE 09/01/2018 [facility] Urine protein measurement by test strip (mass/volume) NEGATIVE NEGATIVE 09/01/2018 [facility] Urine glucose detection NEGATIVE NEGATIVE 09/01/2018 [facility] Urine ketones detection by automated test strip NEGATIVE NEGATIVE 09/01/2018 [facility] Urine urobilinogen measurement by test strip (mass/volume) 0.2 0.2 - 1 09/01/2018 [facility] Urine total bilirubin measurement (mass/volume) NEGATIVE NEGATIVE 09/01/2018 [facility] Urine erythrocytes detection NEGATIVE NEGATIVE 09/01/2018 [facility] Automated urine sediment leukocyte count by microscopy (number/high power field) NONE 0 - 5 09/01/2018 [facility] Erythrocytes detection in urine sediment by light microscopy NONE 0 - 5 09/01/2018 [facility] Bacteria detection in urine sediment by light microscopy MANY NONE 09/01/2018 [facility] Epithelial cells detection in urine sediment by light microscopy NONE NONE 09/01/2018 [facility] Amorphous sediment detection in urine sediment by light microscopy MODERATE FEW 09/01/2018 [facility] Hyaline casts detection in urine sediment by light microscopy 2-5 0 - 1 09/01/2018 [facility] Activated partial thromboplastin time (aPTT) in platelet poor plasma bycoagulation assay 39.3 23.8 - 35.5 09/01/2018 [facility] Serum or plasma total bilirubin measurement (mass/volume) 0.8 0.2 - 1.2 09/01/2018 [facility] Aspartate Amino Transf (AST/SGOT) 22 5 - 34 09/01/2018 [facility] Serum or plasma alanine aminotransferase measurement (enzymatic activity/volume) 55 0 - 55 09/01/2018 [facility] Serum or plasma protein measurement (mass/volume) 7.6 6.5 - 8.1 09/01/2018 [facility] Serum or plasma albumin measurement (mass/volume) 3.0 3.5 - 5.0 09/01/2018 [facility] Plasma globulin measurement (mass/volume) 4.6 2.3 - 3.5 09/01/2018 [facility] Serum or plasma albumin/globulin mass ratio 0.7 0.8 - 2.0 09/01/2018 [facility] Serum or plasma alkaline phosphatase measurement (enzymatic activity/volume) 81 40 - 150 09/01/2018 [facility] CARDIAC ENZYMES BNP 44 pg/mL <=100 pg/mL 08/08/2018 [facility] CARDIAC ENZYMES Troponin-I null 0.00 - 0.40 08/08/2018 [facility] CARDIAC ENZYMES Total CK 91 unit/L 12 - 191 08/08/2018 [facility] CHEM PANEL eGFR 59 mL/min/1.73m2 08/08/2018 Result Comment: The eGFR is calculated using the [...] from the National Kidney Disease Education Program (NKDEP) which additionally recommends that when the eGFR is used in patients with extremes of body mass index for purposes of drug dosing, the eGFR should be multiplied by the estimated BMI. [facility] CHEM PANEL Chloride Lvl 101 meq/L 95 - 109 08/08/2018 [facility] CHEM PANEL Potassium Lvl 3.9 meq/L 3.5 - 5.1 08/08/2018 [facility] CHEM PANEL Bili Total 2.5 mg/dL 0.2 - 1.3 08/08/2018 [facility] CHEM PANEL Albumin Lvl 3.7 g/dL 3.5 - 5.0 08/08/2018 [facility] CHEM PANEL ALT 29 unit/L 0 - 65 08/08/2018 [facility] CHEM PANEL AST 20 unit/L 0 - 37 08/08/2018 [facility] CHEM PANEL Alk Phos 64 unit/L 39 - 136 08/08/2018 [facility] CHEM PANEL CO2 28 meq/L 24 - 32 08/08/2018 [facility] CHEM PANEL Calcium Lvl 9.5 mg/dL 8.5 - 10.5 08/08/2018 [facility] CHEM PANEL Total Protein 8.3 g/dL 6.4 - 8.4 08/08/2018 [facility] CHEM PANEL Creatinine Lvl 1.30 mg/dL 0.50 - 1.40 08/08/2018 [facility] CHEM PANEL Sodium Lvl 139 meq/L 135 - 145 08/08/2018 [facility] CHEM PANEL BUN 17 mg/dL 7 - 22 08/08/2018 [facility] CHEM PANEL Glucose Lvl 142 mg/dL 70 - 99 08/08/2018 [facility] CHEM PANEL A/G Ratio 0.8 0.7 - 1.6 08/08/2018 [facility] CHEM PANEL Globulin 4.6 g/dL 2.7 - 4.2 08/08/2018 [facility] CHEM PANEL B/C Ratio 13 6 - 25 08/08/2018 [facility] CHEM PANEL AGAP 13.9 meq/L 10.0 - 20.0 08/08/2018 [facility] HEMATOLOGY Basophils # 0.1 K/CMM 0.0 - 0.2 08/08/2018 [facility] HEMATOLOGY Eosinophils # 0.1 K/CMM 0.0 - 0.5 08/08/2018 [facility] Monocytes # 0.8 K/CMM 0.0 - 0.8 08/08/2018 [facility] Monocytes 5.1 % 2.0 - 12.0 08/08/2018 [facility] Lymphocytes 7.3 % 20.0 - 40.0 08/08/2018 [facility] HEMATOLOGY Eosinophils 0.9 % 0.0 - 4.0 08/08/2018 [facility] Basophils 0.7 % 0.0 - 1.0 08/08/2018 [facility] Lymphocytes # 1.2 K/CMM 1.0 - 5.5 08/08/2018 [facility] Neutrophils # 13.8 K/CMM 1.5 - 8.1 08/08/2018 [facility] Segs 86.0 % 45.0 - 75.0 08/08/2018 [facility] Hgb 14.7 g/dL 14.0 - 18.0 08/08/2018 [facility] RDW 13.1 % 11.5 - 14.5 08/08/2018 [facility] Hct 44.0 % 42.0 - 54.0 08/08/2018 [facility] MCHC 33.5 g/dL 32.0 - 36.0 08/08/2018 [facility] MCH 29.2 pg 27.0 - 31.0 08/08/2018 [facility] MCV 87.4 fL 80.0 - 94.0 08/08/2018 [facility] Platelet 465 K/CMM 133 - 450 08/08/2018 [facility] MPV 7.0 fL 7.4 - 10.4 08/08/2018 [facility] RBC 5.04 M/CMM 4.70 - 6.10 08/08/2018 [facility] WBC 16.0 K/CMM 3.7 - 10.4 08/08/2018 [facility] PTT 36.0 s 22.9 - 35.8 08/08/2018 [facility] INR 1.17 0.85 - 1.17 08/08/2018 [facility] PT 14.7 s 12.0 - 14.7 08/08/2018 [facility] Ext Lower Venous Doppler Unilat US Ext Lower Venous Doppler Unilat US Patient Name: MATILDE REYNA : 1960; Age: 58 years Male MR: [id number] Study: Ext Lower Venous Doppler Unilat US 08/08/2018 11:47 NECKTIE TURNER CLINICAL INDICATION: - sob, recent sx, r/o dvt. Right leg swelling COMPARISON: None TECHNIQUE: Sonographic evaluation of the right lower extremity veins was performed using high resolution B-mode imaging, along with pulse and color Doppler imaging. FINDINGS: Right lower extremity: The common femoral vein, femoral vein, popliteal vein and visualized posterior tibial/calf veins are patent and compressible. The saphenofemoral junction and visualized greater saphenous vein are patent and compressible. IMPRESSION: No evidence of deep venous thrombosis within the right lower extremity. SL: [id number] 08/08/2018 - - Read by: Rcoky Adams MD Dictated Date/time: 08/08/18 14:20 Electronically Signed by: Rocky Adams MD 08/08/18 14:20 FINAL REPORT [facility] Chest 1view DX Chest 1view DX Clinical Indication: - sob. No bowel movement for 3 days. Knee surgery one week ago. Comparison: 07/13/2018. TECHNIQUE: AP 1 view chest radiograph was performed. FINDINGS: LUNGS: Normal lung volumes. No interstitial or airspace opacities. No pleural effusions or pneumothorax. HEART AND MEDIASTINUM: The heart size is normal. The pulmonary vasculature is normal. The mediastinal contour is normal. The trachea is midline. OSSEOUS STRUCTURES: No acute abnormality seen. IMPRESSION: 1. No AP chest radiographic evidence of acute cardiopulmonary disease. SL: [id number] 08/08/2018 - - Read by: Christos Funez MD Dictated Date/time: 08/08/18 12:14 Electronically Signed by: Christos Funez MD 08/08/18 12:14 FINAL REPORT [facility] Abdomen AP DX Abdomen AP DX Abdomen AP DX CLINICAL INDICATION: - abd pain, ro obstruction COMPARISON: None FINDINGS: Support Lines/Tubes: none Bowel gas pattern is unremarkable. Moderate amount retained stool is present in the colon.. No tract calculi are evident. No acute bony abnormality is noted. IMPRESSION: No acute abnormality is noted. SL: [id number] 08/08/2018 - - Read by: Efraín Campbell MD Dictated Date/time: 08/08/18 12:47 Electronically Signed by: Efraín Campbell MD 08/08/18 13:00 FINAL REPORT [facility] Knee 1-2 Views unilateral DX Knee 1-2 Views unilateral DX Patient Name: MATILDE REYNA : 1960; Age: 58 years y/o Male MR: [id number] Study: Knee 1-2 Views unilateral DX 07/31/2018 13:22 NECKTIE TURNER Ordering Physician: MD Abdirizak Duckworth MD Clinical Indication: Arthritis - Assess Implant Position; Comparison: None Right knee 2 views IMPRESSION: Status post arthroplasty. Hardware in satisfactory position. There are anchor screws within the intercondylar portion of the distal femur and within the anterior subarticular portion of the proximal tibia, likely remnants of previous anterior cruciate ligament repair. There is soft tissue and intra-articular gas, compatible with the recent postoperative state. SL: [id number] 07/31/2018 - - Read by: Raúl Zepeda MD Dictated Date/time: 07/31/18 14:28 Electronically Signed by: Raúl Zepeda MD 07/31/18 14:30 FINAL REPORT [facility] Chest 2 views DX Chest 2 views DX Patient Name: MATILDE REYNA : 1960; Age: 58 years Male MR: [id number] Study: Chest 2 views DX Order Time: 07/13/2018 9:26 NECKTIE TURNER CLINICAL INDICATION: Coughing - Coughing COMPARISON: None FINDINGS: Lines: None. Lungs: The lungs are grossly clear. Mediastinum: The cardiac silhouette is within normal limits of size. Midline trachea. Bones and soft tissues: No acute abnormalities. IMPRESSION: No acute cardiopulmonary abnormalities. SL: [id number] 07/13/2018 - - Read by: Rocky Adams MD Dictated Date/time: 07/13/18 10:10 Electronically Signed by: Rocky Adams MD 07/13/18 10:11 FINAL REPORT [facility] CHEMISTRY AGAP 13.3 meq/L 10.0 - 20.0 09/02/2011 Normal [facility] CHEMISTRY Calcium Lvl 8.7 mg/dL 8.5 - 10.5 09/02/2011 Normal [facility] CHEMISTRY CO2 27 meq/L 24 - 32 09/02/2011 Normal [facility] CHEMISTRY Chloride Lvl 104 meq/L 95 - 109 09/02/2011 Normal [facility] CHEMISTRY Potassium Lvl 4.3 meq/L 3.5 - 5.1 09/02/2011 Normal [facility] CHEMISTRY Glucose Lvl 70 mg/dL 09/02/2011 NA 1Interpretive Data: Reference Ranges : 0 - 7 days : 41 - 90 mg/dL7 days - 150 yrs : 70 - 99 mg/dL (fasting), based on the clinical recommendations of the [place] [employer]. [facility] CHEMISTRY Creatinine Lvl 1.2 mg/dL 0.5 - 1.4 09/02/2011 Normal [facility] CHEMISTRY BUN 12 mg/dL 7 - 22 09/02/2011 Normal [facility] CHEMISTRY Sodium Lvl 140 meq/L 135 - 145 09/02/2011 Normal [facility] Vital Signs Vital Sign Value Date Comments Source Heart Rate 69 08/09/2018 [facility] Systolic (mm Hg) 190 08/09/2018 [facility] Diastolic (mm Hg) 98 08/09/2018 [facility] Respitory Rate 18 08/09/2018 [facility] Weight 113.636 08/08/2018 [facility] BMI Calculated 32.17 08/08/2018 [facility] Height 187.96 cm 08/08/2018 [facility] Systolic (mm Hg) 189 08/08/2018 [facility] Diastolic (mm Hg) 98 08/08/2018 [facility] Heart Rate 64 08/08/2018 [facility] Respitory Rate 18 08/08/2018 [facility] Temperature Oral (F) 98.0 F 08/08/2018 [facility] Diastolic (mm Hg) 64 09/07/2011 [facility] Systolic (mm Hg) 121 09/07/2011 [facility] Respitory Rate 18 09/07/2011 [facility] Respitory Rate 16 09/07/2011 [facility] Systolic (mm Hg) 95 09/07/2011 [facility] Diastolic (mm Hg) 54 09/07/2011 [facility] Respitory Rate 16 09/07/2011 [facility] Systolic (mm Hg) 84 09/07/2011 [facility] Diastolic (mm Hg) 44 09/07/2011 [facility] Temperature Oral (F) 98.2 F 09/02/2011 [facility] Heart Rate 73 09/02/2011 [facility] Weight 113.636 09/02/2011 [facility] Height 187.96 cm 09/02/2011 [facility] Encounters Location Location Details Encounter Type Encounter Number Reason For Visit Attending Provider ADM Date DC Date Status Source OD [id number] 729.5 - PAIN IN LIMB MATILDE MABRY 08/02/2011 08/02/2011 Active AILEEN Toscano [facility] HEATHER [id number] [facility] BARAJASMOHSEN 09/07/2011 09/07/2011 Active [facility] OP Therapy Patients [id number] Abdirizak Duckworth 08/02/2018 09/01/2018 [facility] Emergency [id number] Alpesh Didi 08/08/2018 08/09/2018 [facility] Discharged Inpatient [id number] ELVER LIU MD 09/04/2018 09/05/2018 [facility] Procedures Procedure Code Date Perfomer Comments Source Bronchoscopy with biopsy [id number] 09/04/2018 [facility] Computed tomography of chest without contrast [id number] 09/02/[address] [facility] [address] of abdomen and pelvis without contrast [id number] 09/02/2018 [facility] Prostate excision [id number] [facility] Prostate excision [id number] [facility]
[2018-10-02 14:15] VITALS: BP 105/67
--- NOTE | 2018-10-02 19:48 | Operative Report ---
DATE OF PROCEDURE: 10/02/2018 SURGEON: Vic Duran MD PROCEDURES: Colonoscopy and polypectomy. INDICATION FOR PROCEDURE: Surveillance colonoscopy, personal history of colon polyps. MEDICATIONS: The patient was done under MAC, please see anesthesiologist's note. PROCEDURE IN DETAIL: With the patient in left lateral decubitus position, flexible fiberoptic Olympus colonoscope was inserted into the rectum with ease and advanced all the way to the cecum. Two polyps were snared and two polyps were hot biopsied from the cecum, one polypectomy site was hemoclipped. The scope was then withdrawn slowly and mucosa overlying the ascending colon appeared to be within normal limits. One polyp was snared and one polyp was hot biopsied from the transverse colon. One polyp was snared and one polyp was hot biopsied from the descending colon. Diverticular disease was noted to involve the descending and the sigmoid colon. One polyp was hot biopsied from the rectum. The scope was then retroflexed into the distal rectum and small internal hemorrhoids were noted, none of which was actively bleeding. The scope was then straightened out, it was subsequently withdrawn. The patient tolerated the procedure well. IMPRESSION: 1. Cecal polyps x4, two snared, one polypectomy site hemoclipped, and two hot biopsied. 2. Transverse colon polyps x2, one snared, one hot biopsied. 3. Descending colon polyps x2, one hot biopsied and one snared, diverticulosis. 4. Rectal polyp, hot biopsied. 5. Internal hemorrhoids, none actively bleeding. PLAN: Follow up histology. Initiate high-fiber, low-fat diet. Initiate high-fiber supplement. The patient might benefit from a followup colonoscopy in 3 years. Vic Duran MD [facility] [place] [place]/BRIANL /[id number] cc: Yelitza Franco
== END | disposition home or self-care (01) ==
LOC: OR 09:40
PROVIDERS: ATTEND Internal Medicine Gastroenterology
DX: R19.7 Diarrhea, unspecified (principal); D12.0 Benign neoplasm of cecum; D12.3 Benign neoplasm of transverse colon; K62.1 Rectal polyp; K64.8 Other hemorrhoids; K21.9 Gastro-esophageal reflux disease without esophagitis; R63.4 Abnormal weight loss; I10 Essential (primary) hypertension; I45.10 Unspecified right bundle-branch block; J30.2 Other seasonal allergic rhinitis; Z88.8 Allergy status to other drugs, medicaments and biological substances; Z96.651 Presence of right artificial knee joint; Z68.28 Body mass index [BMI] 28.0-28.9, adult; Z85.46 Personal history of malignant neoplasm of prostate; Z86.19 Personal history of other infectious and parasitic diseases
CPT/HCPCS: 45384; 45385; J1980; J2250; J2704; 44391; 45380

== ENCOUNTER → 2019-02-27 | Outpatient (CLI) | payer OTHER ==
[~2019-02-27] MED LIST changes: -FENTANYL CITRATE/PF 100MCG/2 ML INJ ONE; -HYOSCYAMINE SULFATE 0.5 MG/ML INJ ONE; -MIDAZOLAM HCL 2 MG/2 ML VIAL ONE; -PROPOFOL IV EMULSION 10 MG/ML 50 ML VIAL ONE
== END ==
LOC: WCC 05:00
PROVIDERS: ATTEND Family Medicine Adult Medicine
DX: Z48.00 Encounter for change or removal of nonsurgical wound dressing (principal)

== ENCOUNTER → 2019-06-26 | Day surgery (SDC) | payer OTHER ==
[~2019-06-26] MED LIST changes: +BUPIVACAINE 0.25% 30ML SDV INJ ONE; +BUPIVACAINE HCL 0.5% INJ 30 ML VIAL INJ ONE; +CEFAZOLIN SOD 1 GM/NS 50ML 50 ML IV ONE; +DEXAMETHASONE SOD PHOS INJ 4 MG/ML VIAL ONE; +EPHEDRINE SULFATE INJ 50 MG/ML VIAL ONE; +FENTANYL CITRATE/PF 100MCG/2 ML INJ ONE; +GLYCOPYRROLATE INJ 0.2 MG/ML VIAL ONE; +LIDOCAINE HCL 2% LOCAL INJ 5 ML SDV VIAL INJ ONE; +MIDAZOLAM HCL 2 MG/2 ML VIAL ONE; +MUPIROCIN 2% OINT 22 GM TUBE ONE; +ONDANSETRON HCL INJ 2MG/ML 2ML 2 MG/ML VIAL ONE; +PROPOFOL IV EMULSION 10 MG/ML 20 ML VIAL ONE; +SEVOFLURANE INHAL SOLN 250 ML PEN BTL ONE
[2019-06-26 08:46] VITALS: BP 129/85
--- NOTE | 2019-06-26 17:23 | Operative Report ---
DATE OF PROCEDURE: 06/26/2019 SURGEON: Benjy Cates MD PREOPERATIVE DIAGNOSIS: Left carpal tunnel syndrome. POSTOPERATIVE DIAGNOSES: 1. Left carpal tunnel syndrome. 2. Flexor tenosynovitis, left wrist. PROCEDURE: 1. Left open carpal tunnel release. 2. Flexor tenosynovectomy, left wrist. ANESTHESIA: General. HISTORY: The patient is a 59-year-old with EMG-proven left carpal tunnel syndrome. Risks, benefits and alternatives of treatment were discussed with the patient. The patient is prepared to undergo the procedure as outlined. DESCRIPTION OF PROCEDURE: The patient was brought to the operating theater. After the induction of adequate general inhalation anesthesia, the patient was prepped and draped in the supine position. A time out was performed by the entire operating room team. A 2.5 cm incision was marked out in the intrathenar space. The left upper extremity was exsanguinated, and a tourniquet was inflated to a pressure of 250 mmHg. The incision was made through the skin and subcutaneous tissues and all venous tributaries were controlled with bipolar cautery. The incision was deepened through the palmar fascia until the transverse carpal ligament was identified. The ligament was sharply sectioned, taking care to protect and preserve the median nerve underlying it. After the complete width of the ligament had been transected, the distal volar forearm fascia was divided under direct view. Proliferative flexor tenosynovium was noticed to encompass the median nerve and this was radically excised. After performing this maneuver, the nerve was noted to lie adequately decompressed. The wound was copiously irrigated with bacteriostatic saline, closed with 5-0 nylon in an interrupted horizontal mattress fashion. A Marcaine field block was performed at the operative site. Tourniquet was deflated. All of the fingers pinked up nicely and a sterile bulking conforming bandage was applied to the hand and the wrist. A fiberglass splint was fashioned to maintain the wrist in a modest amount of extension. This was held in place with a loosely wrapped Ramiro wrap. The patient tolerated the procedure well and was brought to the recovery room in satisfactory condition and discharged with a postoperative instruction sheet as well as a followup appointment. Benjy Cates MD ER/MODL /[id number]
== END | disposition home or self-care (01) ==
LOC: OR 05:22
PROVIDERS: ATTEND Plastic Surgery
DX: G56.02 Carpal tunnel syndrome, left upper limb (principal); M65.842 Other synovitis and tenosynovitis, left hand; I10 Essential (primary) hypertension; Z01.810 Encounter for preprocedural cardiovascular examination
CPT/HCPCS: 25115; 93005; J0690; J1100; J2001; J2250; J2405; J2704; J3010